=== PATIENT | male | born 1960 | race Caucasian/White ===

== ENCOUNTER 2016-03-18 18:02 | Outpatient (CLI) | payer OTHER ==
[~2016-03-18 18:02] MED LIST: ACETAMINOPHEN500 MG PO; FLUZONE IM; GABAPENTIN600 MG PO; HUMALOG100 MG/ML SC; INVANZ1 GM IV; LANTUS SOL100 UNITS/ SC; METFORMIN HCL500 MG PO; METRONIDAZOLE500 MG PO; NEURONTIN100 MG PO; OXYCONTIN CR10 MG PO; PERCOCET1 TA1 PO; SMZ-TMP DS1 TAB PO; VANCOMYCIN HCL750 MG IV
--- NOTE | 2016-03-18 19:10 | DIAGNOSTIC IMAGING REPORT ---
PROCEDURE: XR FOOT 3 VIEWS - LEFT INDICATION: THREE WOUNDS OF THE LEFT FOOT TECHNIQUE: Three views. COMPARISON: Comparison made radiographs of the left foot on 10/01/2015. 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 There is no evidence of osteomyelitis. Findings suggest probable soft tissue wound. Arterial vascular calcifications consistent with diabetes. IMPRESSION: 1. Status post amputation of the left midfoot (no change). 2. No evidence of osteomyelitis.
== END 2016-03-18 23:00 ==
LOC: XR SRH 18:02
DX: L97.429 Non-pressure chronic ulcer of left heel and midfoot with unspecified severity (principal); Z89.432 Acquired absence of left foot

== ENCOUNTER 2016-05-18 11:06 | Emergency (ER) | payer OTHER ==
--- NOTE | 2016-05-18 11:31 | ED NURSING NOTES ---
Clinical Report - Nurses [facility] [address] [place] [address] 05/18/2016 11:08 Patient: JOSLYN MARIE TRIAGE Acuity: LEVEL 4. Chief Complaint: DOG BITE. Alert. No acute distress. SEPSIS SCREEN: Sepsis Screen. Negative (no infection suspected/documented). --11:18 Alexandra Dorantes R.N. 11:13 05/18/16. BP: 154/74. HR: 80. RR: 18. O2 saturation: 96%. Temp: 98.2 F (oral). Pain level now: 04/16. --11:18 Alexandra Dorantes R.N. Weight: 88.4 kg stated. Height/Length: 67 inches Per Patient. BMI: 30.6. --11:17 Alexandra Dorantes R.N. Medications Gabapentin Oral 600 mg TID. Lantus Subcutaneous. MetFORMIN HCl Oral 1000 mg TID. Percocet Oral 5/325 mg, as needed. --11:16 Alexandra Dorantes R.N. HumaLOG Subcutaneous. --11:16 Alexandra Dorantes R.N. Tylenol Oral. --11:17 Alexandra Dorantes R.N. Allergies No Known Drug Allergy. --11:16 lAexandra Dorantes R.N. History Arrived by private vehicle. Historian: patient. Unaccompanied. Primary physician (mandi). Location of injuries: right thumb and left wrist. This occurred just prior to arrival. Circumstances: This was an "unprovoked" attack. The animal reportedly appeared well and the immunization status of the animal is unknown. PAST MEDICAL HX: Immunizations: up-to-date. SOCIAL HX: Never smoker. Regular alcohol use. No drug use. FALL RISK ASSESSMENT: Fall risk assessment completed. No fall risk identified. NUTRITIONAL RISK ASSESSMENT: The nutritional risk assessment revealed no deficiencies. FUNCTIONAL ASSESSMENT: Functional assessment: no impairments noted. LEARNING NEEDS ASSESSMENT: The learning needs assessment revealed no barriers. SKIN INTEGRITY ASSESSMENT: Skin integrity risk assessment completed. No skin integrity risk identified. --11:18 Alexandra Dorantes R.N. PROBLEMS: Hyperglycemia. Insomnia. Ulcer L foot. Fever. Anemia. Wound debridement right foot 07/02/15. Animal Bite. Hypotension. Cellulitis. Leukocytosis. Immunizations. Diabetes Mellitus. --11:17 Alexandra Dorantes R.N. ADDITIONAL SURGERIES: Right foot surgery. Toe amputation. --11:17 Alexandra Dorantes R.N. Assessment GENERAL / NEURO / PSYCH: Alert. Oriented X 4. Appears in no acute distress. Patient appears calm and cooperative. RESPIRATORY: Respirations not labored. CVS: Capillary refill less than 2 seconds. GI / : Abdomen soft and nontender. SKIN: Mucous membranes are pink. Skin is warm and dry. --11:18 Alexandra Dorantes R.N. Interventions ID band on patient. To treatment room. --11:18 Alexandra Dorantes R.N. PHYSICAL ASSESSMENT 11:19 05/18/16. Ambulatory to room. GENERAL / NEURO / PSYCH: Alert. Oriented X 4. Appears in no acute distress. HEENT: Pupils equal, round and reactive to light. RESPIRATORY: Respirations not labored. CVS: Pulses within normal limits. Capillary refill less than 2 seconds. GI / : Abdomen soft and nontender. EXTREMITIES: Extremities exhibit normal ROM. Neuro-vascular status intact to the extremity. Right thumb: tenderness and small abrasion. Left wrist: tenderness, swelling, small abrasion and single puncture wound. SKIN: Skin is warm and dry. --11:19 Alexandra Dorantes R.N. NURSING PROGRESS NOTES 11:05/18/16. Two patient identifiers checked. Call light placed in reach. Side rails up x 1. Bed placed in lowest position. Brakes of bed on. Patient ready for evaluation- chart flagged and ED physician notified. --11:19 Alexandra Dorantes R.N. 11:30 05/18/2016 Augmentin (Amoxicillin-Pot Clavulanate) PO 875 mg given. Allergies verified and confirmed 5 rights. --11:35 Ralph Gao R.N. ( cleaned wound , ointment applied, covered with 2 x 2 and wrapped with conform.). --11:44 Nations, Rashmi, ER Tech1. DISPOSITION / DISCHARGE 11:48 05/18/16. Condition at departure: improved. The goals identified in the patient's plan of care were met. No learning barriers present. Discharge instructions provided and reviewed with the patient. Reviewed warnings. Reviewed medication(s). Treatments reviewed. Patient verbalized understanding. Written instructions provided in [place]ian. The patient was discharged by the physician. He was discharged home and unaccompanied at time of discharge. He left the Emergency Department ambulatory and via private vehicle. Patient driving. FALL RISK ASSESSMENT: Fall risk assessment completed. No fall risk identified. --11:49 Ralph Gao R.N. 11:48 05/18/16. BP: 135/82. HR: 78. RR: 18. O2 saturation: 99% on room air. Temp: 98.2 F (oral). Pain level now: 03/16. --11:49 Ralph Gao R.N. 11:49 05/18/16. Departure time: 11:49. --11:49 Ralph Gao R.N. Locked/Released at 05/18/2016 11:54 by Ralph Gao R.N.
--- NOTE | 2016-05-18 11:31 | ED ORDER SUMMARY ---
..... Patient: JOSLYN MARIE OrderSheet [facility] VisitID: [id number] [place] [address] 56y, M Registration Date/Time: 05/18/2016 ORDER SHEET Weight: 88.4 kg (stated) Allergies: No Known Drug Allergy GENERAL ORDERS: Dress Wounds (baci) (11:05/18/2016 Eliazar Mayo) (Ack 11:36 MWinterer R.N.) (11:47 JBoardley R.N.) Irrigate Wounds (11:05/18/2016 Eliazar Mayo) (Ack 11:36 MWinterer R.N.) (11:47 JBoardley R.N.) MEDICATION ORDERS: Augmentin PO 875 mg (NOW) (11:05/18/2016 Eliazar Mayo) (Ack 11:32 JBoardley R.N.) (11:35 JBoardley R.N.) IV FLUIDS: ORDER SHEET NOTES: [Electronically signed by Ralph Gao R.N. (11:54 05/18/2016)] [Electronically signed by Joseph Garza Dr. (14:12 05/23/2016)] [Electronically locked/signed by Ralph Gao R.N. (11:54 05/18/2016)]
--- NOTE | 2016-05-18 11:31 | ED CLINICAL REPORT ---
Clinical Report - Physicians/Mid Levels [facility] [address] [place] [address] 05/18/2016 11:08 Patient: JOSLYN MARIE Arrived- By private vehicle. Historian- patient. HISTORY OF PRESENT ILLNESS Location of injuries- (left wrist and right hand). Chief Complaint: DOG BITE. The injury occurred just prior to arrival. The animal reportedly appeared well, is up to date on immunizations and can be observed for ten days. Occurred at home. This was an "unprovoked" attack. (dog digging in trash and attempted to get dog out of trash). No dizziness or difficulty breathing. Treatment MEDICAL MANAGEMENT SPECIALIST- none. REVIEW OF SYSTEMS The patient has had swelling. No numbness or tingling. All systems otherwise negative, except as recorded above. PAST HISTORY See nurses notes. Tetanus immunization status is up-to-date. Medications: Tylenol Oral. HumaLOG Subcutaneous. Gabapentin Oral 600 mg TID. Lantus Subcutaneous. MetFORMIN HCl Oral 1000 mg TID. Percocet Oral 5/325 mg, as needed. Allergies: No Known Drug Allergy. SOCIAL HISTORY Never smoker. No alcohol use or drug use. No recent travel. Is a local resident. ADDITIONAL NOTES The nursing notes have been reviewed. PHYSICAL EXAM Vital Signs: 05/18/2016 11:13 BP: 154/74. HR: 80. RR: 18. O2 saturation: 96%. Temp: 98.2 F. Pain level now: 2/10. Blood pressure normal. Oxygen saturation normal. Appearance: Alert. Oriented X3. No acute distress. Head: No Perez's sign or raccoon eyes. ENT: No hemotympanum. Neck: Normal inspection. No decreased ROM or muscle spasm in the neck. No pain with movement of head/neck. Neck non-tender. Painless ROM. No vertebral tenderness. CVS: Heart sounds normal. Pulses normal. Respiratory: Chest normal on inspection. Breath sounds normal. Chest nontender. Abdomen: Normal inspection. Soft and nontender. Bowel sounds normal. Back: Normal inspection. No tenderness. ROM normal. Skin: Skin intact. Skin warm and dry. Normal skin color. Normal skin turgor. Extremities: (cattered superficial abrasions to the left wrist as well as the right dorsal hand. There is a small puncture wound noted on the left wrist which is several millimeters deep. No subcutaneous tissue notedto be visualized on examination. Compartments are soft. No overlying skin changes other than the abrasions and the small puncture wound. Patient has full range of motion of the hand in all major joints Sensation grossly intact in all digits.). Neuro: Hastings Coma Scale: 15- eyes open spontaneously (4); best verbal response- oriented x 3 (5); best motor response- obeys commands (6). PROGRESS AND PROCEDURES Course of Care: The patient is a pleasant 56-year-old male presenting for a vaginal dogbite. On examination, patient does not have any signs of foreign body or significant injury noted from the dog bite. Patient declines offers of x-rays of the left wrist in particular given the small puncture wound. Patient reports that he feels it is not very deep. Had discussion with patient in regards to management of dog bites. Patient is currently agreeable to antibiotic therapy. No otherinjuries noted on examination. No concern for rabies at this time. Wound is then irrigated via nursing staffhere in the emergency department. barrier antibiotic ointment as well as bandages have been applied here as well. Patient was reevaluated after these interventions have beenperformed. Patient continues to be neurovascularly intact. Discussed with patient workup, diagnosis, home care, follow-up, and return precautions. All questions have been answered. The patient expressed understanding of these instructions and was agreeable to them. Patient is a good outpatient candidate. Do not feel patient needs to be admitted to hospital or require further emergency departmentworkup/evaluation. Disposition: Discharged. Condition: good. CLINICAL IMPRESSION 05/18/2016 11:13 BP: 154/74. HR: 80. RR: 18. O2 saturation: 96%. Temp: 98.2 F. Pain level now: 04/16. Hypertensive. Oxygen saturation normal. Multiple superficial dog bites to the right hand and left wrist. No bite with injury to the right fingernails. Essential hypertension. INSTRUCTIONS Warnings: GENERAL WARNINGS: Return or contact your physician immediately if your condition worsens or changes unexpectedly, if not improving as expected, or if other problems arise. Specifically return if pain, vomiting, bleeding, breathing difficulty or fever. Your Current Medications: CONTINUE TAKING THE FOLLOWING MEDICATIONS: Gabapentin Oral : 600 mg TID. HumaLOG Subcutaneous. Lantus Subcutaneous. MetFORMIN HCl Oral : 1000 mg TID. Percocet Oral : 5/325 mg, prn. Tylenol Oral. Prescription Medications: Augmentin 875 mg: take 1 tablet orally every 12 hours for 10 days. No refill. Substitution is permissible. (disp 20 tabs) Follow-up: Return to the emergency department as needed. Follow up with your doctor in three days. Reason for referral: recheck today's concerns. Summary of care provided to patient via paper. Screening today revealed the patient's blood pressure to be in the hypertensive range. Blood pressure screening was not performed during this visit because the patient has an active diagnosis of hypertension. The patient should follow up with a primary care provider for blood pressure management. Understanding of the discharge instructions verbalized by patient. (Electronically signed by Joseph Garza Dr. 05/23/2016 14:12)
--- NOTE | 2016-05-18 11:31 | ED ORDER SUMMARY ---
..... Patient: JOSLYN MARIE OrderSheet [facility] VisitID: [id number] [place] [address] 56y, M Registration Date/Time: 05/18/2016 ORDER SHEET Weight: 88.4 kg (stated) Allergies: No Known Drug Allergy GENERAL ORDERS: Dress Wounds (baci) (11:05/18/2016 Eliazar Mayo) (Ack 11:36 MWinterer R.N.) (11:47 JBoardley R.N.) Irrigate Wounds (11:05/18/2016 Eliazar Mayo) (Ack 11:36 MWinterer R.N.) (11:47 JBoardley R.N.) MEDICATION ORDERS: Augmentin PO 875 mg (NOW) (11:05/18/2016 Eliazar Mayo) (Ack 11:32 JBoardley R.N.) (11:35 JBoardley R.N.) IV FLUIDS: ORDER SHEET NOTES: [Electronically signed by Ralph Gao R.N. (11:54 05/18/2016)] [Electronically signed by Joseph Garza Dr. (14:12 05/23/2016)] [Electronically locked/signed by Ralph Gao R.N. (11:54 05/18/2016)]
--- NOTE | 2016-05-23 14:12 | ED MED RECONCILIATION SUMMARY ---
Patient: JOSLYN MARIE Medication Reconciliation Report [facility] VisitID: [id number] [place] [address] 56y, M Registration Date/Time: 05/18/2016 Weight: 88.4 kg Height/Length: 67 in. BMI: 30.6 ALLERGIES: No Known Drug Allergy The patient's Home Medications are listed below: CONTINUE TAKING THE FOLLOWING MEDICATIONS: Gabapentin Oral 600 mg TID HumaLOG Subcutaneous Lantus Subcutaneous MetFORMIN HCl Oral 1000 mg TID Percocet Oral 5/325 mg Tylenol Oral The source(s) of the original Home Medication information: Not obtained. The following Medications were given to the patient in the Emergency Department: Augmentin [PO] PO 875 mg, administered: 05/18/2016 11:30:00 AM The following Medications were prescribed to the patient: Augmentin 875 mg: take 1 tablet orally every 12 hours for 10 days. No refill. Substitution is permissible.(disp 20 tabs) -- Joseph Garza Dr.
--- NOTE | 2016-05-23 14:12 | ED MAR SUMMARY ---
..... Medication Administration Record [facility] [address] [place] [address] Patient: JOSLYN MARIE Visit ID: [id number] 56y, M Weight: 88.4 kg Height/Length: 67 in BMI: 30.6 ALLERGIES: No Known Drug Allergy Given 11:30 05/18/2016 Ralph Gao R.N. Medication Administered: AUGMENTIN [PO] (AMOXICILLIN-POT CLAVULANATE), Dose: 875 mg PO. Medication Ordered: Augmentin PO 875 mg (NOW).
--- NOTE | 2016-05-23 14:12 | ED MAR SUMMARY ---
..... Medication Administration Record [facility] [address] [place] [address] Patient: JOSLYN MARIE Visit ID: [id number] 56y, M Weight: 88.4 kg Height/Length: 67 in BMI: 30.6 ALLERGIES: No Known Drug Allergy Given 11:30 05/18/2016 Ralph Gao R.N. Medication Administered: AUGMENTIN [PO] (AMOXICILLIN-POT CLAVULANATE), Dose: 875 mg PO. Medication Ordered: Augmentin PO 875 mg (NOW).
--- NOTE | 2016-05-23 14:12 | ED DISCHARGE INSTRUCTIONS ---
Patient: JOSLYN MARIE General Instructions [facility] VisitID: [id number] [place] [address] 56y, M Registration Date/Time: 05/18/2016 05/18/2016 11:13 BP: 154/74. HR: 80. RR: 18. O2 saturation: 96%. Temp: 98.2 F. Pain level now: 04/16. Hypertensive. Oxygen saturation normal. Multiple superficial dog bites to the right hand and left wrist. No bite with injury to the right fingernails. Essential hypertension. INSTRUCTIONS Warnings: GENERAL WARNINGS: Return or contact your physician immediately if your condition worsens or changes unexpectedly, if not improving as expected, or if other problems arise. Specifically return if pain, vomiting, bleeding, breathing difficulty or fever. Your Current Medications: CONTINUE TAKING THE FOLLOWING MEDICATIONS: Gabapentin Oral : 600 mg TID. HumaLOG Subcutaneous. Lantus Subcutaneous. MetFORMIN HCl Oral : 1000 mg TID. Percocet Oral : 5/325 mg, prn. Tylenol Oral. Prescription Medications: Augmentin 875 mg: take 1 tablet orally every 12 hours for 10 days. No refill. Substitution is permissible. (disp 20 tabs) Follow-up: Return to the emergency department as needed. Follow up with your doctor in three days. Reason for referral: recheck today's concerns. Summary of care provided to patient via paper. Screening today revealed the patient's blood pressure to be in the hypertensive range. Blood pressure screening was not performed during this visit because the patient has an active diagnosis of hypertension. The patient should follow up with a primary care provider for blood pressure management. Understanding of the discharge instructions verbalized by patient. ADDITIONAL INFORMATION Dog Bite If a dog has bitten you and the wound is deep enough to break the skin, an infection may occur. Therefore, you should watch for the warning signs listed below. The doctor may not close the wound completely. This is to allow fluid to drain in the event of an infection. Home Care Watch the wound for signs of infection listed below. In certain types of bites, antibiotics may be prescribed. Begin taking these as soon as possible, as directed until they are all gone. Rabies Prevention If you live in an area where rabies occurs in wild animals, the rabies virus can be passed to cats and dogs. An infected animal can pass the rabies virus to you during a bite. If ahealthy-looking pet dog has bitten you, it should be kept in a secure area for the next 10 days to watch for signs of illness. If the pet filler mixer wont cooperate with you, contact the [facility] animal control department (or local law enforcement). If the animal becomes ill or dies [id number] days, contact your animal control department at once. The animal must be tested for rabies. If the animal stays healthy for the next 10 days, then there is no danger of rabies in the dog or you. Pets fully vaccinated against rabies (2 shots) are at very low risk for the infection. However, because human rabies is almost always fatal, any biting dog should be kept in confinement for 10 days as an extra precaution. If a stray dog bit you, contact the animal control department. They can provide information on capture, quarantine, and animal rabies testing. If you are unable to locate the animal that bit you in the next 2days, and if rabies exists in your region, you must be evaluated for the rabies vaccine series. Contact your doctor or return here promptly. All animal bites should be reported to the [facility] animal control department. If you were not given a form to fill out, you can report it yourself by calling. Follow Up with your doctor as advised. Most skin wounds heal within 10 days. However, an infection may occur even with proper treatment. Check your woundevery 6 hoursfor 2 days, then at least once a day for the next two days for the signs of infection listed below. Get Prompt Medical Attention if any of the following occur: Signs of infection: Spreading redness Increased pain or swelling Fever of 100.4F (38C) or higher, or as directed by your healthcare provider Colored fluid or pus draining from the wound Headache, confusion, strange behavior, or a seizure (signs of a rabies infection) Rabies Virus Strain PM-1503-3M antigen (Propiolactone Inactivated) Suspension for injection What is this medicine? RABIES VACCINE (ray BEES vax EEN) is used to prevent rabies infection. Rabies is mostly a disease of animals. Humans may get rabies if they are bitten by animals that have rabies. The vaccine may be given to protect someone with a high risk of rabies or it may be given to someone after they have been exposed. How should I use this medicine? This vaccine is for injection into a muscle. It is given by a health day care worker. A copy of Vaccine Information Statements will be given before each vaccination. Read this sheet carefully each time. The sheet may change frequently. Talk to your library paraprofessional regarding the use of this medicine in children. While this drug may be prescribed for children and infants, precautions do apply. Overdosage: If you think you've taken too much of this medicine contact a poison control center or emergency room at once. What side effects may I notice from receiving this medicine? Side effects that you should report to your doctor or health day care worker as soon as possible: allergic reactions like skin rash, itching or hives, swelling of the face, lips, or tongue changes in vision joint pain with fever pain, tingling, numbness in the hands or feet stiff neck and sensitivity to light unusually weak or tired Side effects that usually do not require medical attention (Report these to your doctor or health day care worker if they continue or are bothersome.): dizziness headache muscle aches and pains pain, redness, itching or swelling at site where injected stomach pain tiredness What may interact with this medicine? antimalarial drugs etanercept immune globulins infliximab medicines for organ transplant medicines to treat cancer other vaccines some medicines for arthritis steroid medicines like prednisone or cortisone What if I miss a dose? Keep appointments for follow-up doses as directed. It is important not to miss your dose. Call your doctor or health day care worker if you are unable to keep an appointment. All of the vaccine doses must be given in order to provide proper protection. Where should I keep my medicine? This drug is given in a hospital or clinic and will not be stored at home. What should I tell my health care provider before I take this medicine? They need to know if you have any of these conditions: bleeding disorder cancer HIV or AIDS immune system problems low blood counts, like low white cell, platelet, or red cell counts recent or ongoing radiation therapy take medicines that treat or prevent blood clots an unusual or allergic reaction to vaccines, albumin, eggs, neomycin, other medicines, foods, dyes, or preservatives or trying to get breast-feeding What should I watch for while using this medicine? This vaccine, like all vaccines, may not fully protect everyone. High Blood Pressure --Established High Blood Pressure (Hypertension) is a chronic disease. The cause is unknown in most cases. It can usually be controlled with lifestyle changes and/or medicines. Symptoms of high blood pressure may include headache, dizziness, visual changes, chest pain and shortness of breath. Sometimes it causes no symptoms at all. However, even if there are no symptoms, untreated high blood pressure increases the risk of heart attack, also known as acute myocardial infarction, or AMI, and stroke. It is a serious health risk and should not be ignored. A normal blood pressure is 120/80 or less. The first (top) number is the "systolic" pressure. The second (bottom) number is the "diastolic" pressure. Hypertension exists when either the top number is 140 or higher, OR the bottom number is 90 or higher on repeated measurements. Home Care: All patients with high blood pressure should do the following to lower their pressure. If you are on medicines, then these methods may reduce or eliminate your need for medicines in the future. Begin a weight loss program if you are overweight. Reduce your salt intake. Avoid high salt foods (olives, pickles, smoked meats, salted potato chips, etc.). Do not add salt to your food at the table. Use only small amounts of salt when cooking. Begin an exercise program. Discuss with your doctor what type of exercise program would be best for you. It doesn't have to be difficult. Even brisk walking for 20 minutes three times a week is a good form of exercise. Avoid medicines which contain heart stimulants. This includes many cold and sinus decongestant pills and sprays as well as diet pills. Check the warnings about hypertension on the label. Stimulants such as amphetamine or cocaine could be lethal for someone with hypertension. Never take these. Limit your caffeine intake or switch to caffeine-free products. Stop smoking. If you are a long-time smoker, this can be hard. Enroll in a stop-smoking program to improve your chance of success. Learning how to handle stress better is an important part of any program to lower blood pressure. Learn about relaxation methods such as meditation, yoga or biofeedback. If medicines were prescribed, take them exactly as directed. Missing doses may cause your blood pressure get out of control. Consider buying an automatic blood pressure machine (available at most pharmacies). Use this to monitor your blood pressure at home and report the results to your doctor. Follow Up: Regular visits to your own physician for blood pressure checks and medicine adjustment is an important part of your care. Make a follow-up appointment as directed by our staff. Get Prompt Medical Attention if any of the following occur: Chest pain or shortness of breath Severe headache Throbbing or rushing sound in the ears Nosebleed Sudden severe abdominal pain Extreme drowsiness, confusion or fainting Dizziness or vertigo (dizziness with spinning sensation) Weakness of an arm or leg or one side of the face Difficulty with speech or vision Amoxicillin Trihydrate, Clavulanate Potassium Oral tablet What is this medicine? AMOXICILLIN; CLAVULANIC ACID (a mox i MAITE in; JESU kwok aram ic id) is a penicillin antibiotic. It is used to treat certain kinds of bacterial infections. It will not work for colds, flu, or other viral infections. How should I use this medicine? Take this medicine by mouth with a full glass of water. Follow the directions on the prescription label. Take at the start of a meal. Do not crush or chew. If the tablet has a score line, you may cut it in half at the score line for easier swallowing. Take your medicine at regular intervals. Do not take your medicine more often than directed. Take all of your medicine as directed even if you think you are better. Do not skip doses or stop your medicine early. Talk to your library paraprofessional regarding the use of this medicine in children. Special care may be needed. What side effects may I notice from receiving this medicine? Side effects that you should report to your doctor or health day care worker as soon as possible: allergic reactions like skin rash, itching or hives, swelling of the face, lips, or tongue breathing problems dark urine fever or chills, sore throat redness, blistering, peeling or loosening of the skin, including inside the mouth seizures trouble passing urine or change in the amount of urine unusual bleeding, bruising unusually weak or tired white patches or sores in the mouth or throat Side effects that usually do not require medical attention (report to your doctor or health day care worker if they continue or are bothersome): diarrhea dizziness headache nausea, vomiting stomach upset vaginal or anal irritation What may interact with this medicine? allopurinol anticoagulants control pills methotrexate probenecid What if I miss a dose? If you miss a dose, take it as soon as you can. If it is almost time for your next dose, take only that dose. Do not take double or extra doses. Where should I keep my medicine? Keep out of the reach of children. Store at room temperature below 25 degrees C (77 degrees F). Keep container tightly closed. Throw away any unused medicine after the expiration date. What should I tell my health care provider before I take this medicine? They need to know if you have any of these conditions: bowel disease, like colitis kidney disease liver disease mononucleosis an unusual or allergic reaction to amoxicillin, penicillin, cephalosporin, other antibiotics, clavulanic acid, other medicines, foods, dyes, or preservatives or trying to get breast-feeding What should I watch for while using this medicine? Tell your doctor or health day care worker if your symptoms do not improve. Do not treat diarrhea with over the counter products. Contact your doctor if you have diarrhea that lasts more than 2 days or if it is severe and watery. If you have diabetes, you may get a false-positive result for sugar in your urine. Check with your doctor or health day care worker. control pills may not work properly while you are taking this medicine. Talk to your doctor about using an extra method of control. You have been given the following additional information: Dog Bite Rabies Virus Strain PM-1503-3M antigen (Propiolactone Inactivated) Suspension for injection Hypertension, Established Amoxicillin Trihydrate, Clavulanate Potassium Oral tablet (Electronically signed by Joseph Garza Dr. 05/23/2016 14:12)
--- NOTE | 2016-05-23 14:12 | ED DISCHARGE INSTRUCTIONS ---
Patient: JOSLYN MARIE General Instructions [facility] VisitID: [id number] [place] [address] 56y, M Registration Date/Time: 05/18/2016 05/18/2016 11:13 BP: 154/74. HR: 80. RR: 18. O2 saturation: 96%. Temp: 98.2 F. Pain level now: 04/16. Hypertensive. Oxygen saturation normal. Multiple superficial dog bites to the right hand and left wrist. No bite with injury to the right fingernails. Essential hypertension. INSTRUCTIONS Warnings: GENERAL WARNINGS: Return or contact your physician immediately if your condition worsens or changes unexpectedly, if not improving as expected, or if other problems arise. Specifically return if pain, vomiting, bleeding, breathing difficulty or fever. Your Current Medications: CONTINUE TAKING THE FOLLOWING MEDICATIONS: Gabapentin Oral : 600 mg TID. HumaLOG Subcutaneous. Lantus Subcutaneous. MetFORMIN HCl Oral : 1000 mg TID. Percocet Oral : 5/325 mg, prn. Tylenol Oral. Prescription Medications: Augmentin 875 mg: take 1 tablet orally every 12 hours for 10 days. No refill. Substitution is permissible. (disp 20 tabs) Follow-up: Return to the emergency department as needed. Follow up with your doctor in three days. Reason for referral: recheck today's concerns. Summary of care provided to patient via paper. Screening today revealed the patient's blood pressure to be in the hypertensive range. Blood pressure screening was not performed during this visit because the patient has an active diagnosis of hypertension. The patient should follow up with a primary care provider for blood pressure management. Understanding of the discharge instructions verbalized by patient. ADDITIONAL INFORMATION Dog Bite If a dog has bitten you and the wound is deep enough to break the skin, an infection may occur. Therefore, you should watch for the warning signs listed below. The doctor may not close the wound completely. This is to allow fluid to drain in the event of an infection. Home Care Watch the wound for signs of infection listed below. In certain types of bites, antibiotics may be prescribed. Begin taking these as soon as possible, as directed until they are all gone. Rabies Prevention If you live in an area where rabies occurs in wild animals, the rabies virus can be passed to cats and dogs. An infected animal can pass the rabies virus to you during a bite. If ahealthy-looking pet dog has bitten you, it should be kept in a secure area for the next 10 days to watch for signs of illness. If the pet cable armorer operator wont cooperate with you, contact the [facility] hospital animal control department (or local law enforcement). If the animal becomes ill or dies [id number] days, contact your animal control department at once. The animal must be tested for rabies. If the animal stays healthy for the next 10 days, then there is no danger of rabies in the dog or you. Pets fully vaccinated against rabies (2 shots) are at very low risk for the infection. However, because human rabies is almost always fatal, any biting dog should be kept in confinement for 10 days as an extra precaution. If a stray dog bit you, contact the animal control department. They can provide information on capture, quarantine, and animal rabies testing. If you are unable to locate the animal that bit you in the next 2days, and if rabies exists in your region, you must be evaluated for the rabies vaccine series. Contact your doctor or return here promptly. All animal bites should be reported to the [facility] hospital animal control department. If you were not given a form to fill out, you can report it yourself by calling. Follow Up with your doctor as advised. Most skin wounds heal within 10 days. However, an infection may occur even with proper treatment. Check your woundevery 6 hoursfor 2 days, then at least once a day for the next two days for the signs of infection listed below. Get Prompt Medical Attention if any of the following occur: Signs of infection: Spreading redness Increased pain or swelling Fever of 100.4F (38C) or higher, or as directed by your healthcare provider Colored fluid or pus draining from the wound Headache, confusion, strange behavior, or a seizure (signs of a rabies infection) Rabies Virus Strain PM-1503-3M antigen (Propiolactone Inactivated) Suspension for injection What is this medicine? RABIES VACCINE (ray BEES vax EEN) is used to prevent rabies infection. Rabies is mostly a disease of animals. Humans may get rabies if they are bitten by animals that have rabies. The vaccine may be given to protect someone with a high risk of rabies or it may be given to someone after they have been exposed. How should I use this medicine? This vaccine is for injection into a muscle. It is given by a health weekend caregiver. A copy of Vaccine Information Statements will be given before each vaccination. Read this sheet carefully each time. The sheet may change frequently. Talk to your family caseworker regarding the use of this medicine in children. While this drug may be prescribed for children and infants, precautions do apply. Overdosage: If you think you've taken too much of this medicine contact a poison control center or emergency room at once. What side effects may I notice from receiving this medicine? Side effects that you should report to your doctor or health weekend caregiver as soon as possible: allergic reactions like skin rash, itching or hives, swelling of the face, lips, or tongue changes in vision joint pain with fever pain, tingling, numbness in the hands or feet stiff neck and sensitivity to light unusually weak or tired Side effects that usually do not require medical attention (Report these to your doctor or health weekend caregiver if they continue or are bothersome.): dizziness headache muscle aches and pains pain, redness, itching or swelling at site where injected stomach pain tiredness What may interact with this medicine? antimalarial drugs etanercept immune globulins infliximab medicines for organ transplant medicines to treat cancer other vaccines some medicines for arthritis steroid medicines like prednisone or cortisone What if I miss a dose? Keep appointments for follow-up doses as directed. It is important not to miss your dose. Call your doctor or health weekend caregiver if you are unable to keep an appointment. All of the vaccine doses must be given in order to provide proper protection. Where should I keep my medicine? This drug is given in a hospital or clinic and will not be stored at home. What should I tell my health care provider before I take this medicine? They need to know if you have any of these conditions: bleeding disorder cancer HIV or AIDS immune system problems low blood counts, like low white cell, platelet, or red cell counts recent or ongoing radiation therapy take medicines that treat or prevent blood clots an unusual or allergic reaction to vaccines, albumin, eggs, neomycin, other medicines, foods, dyes, or preservatives or trying to get breast-feeding What should I watch for while using this medicine? This vaccine, like all vaccines, may not fully protect everyone. High Blood Pressure --Established High Blood Pressure (Hypertension) is a chronic disease. The cause is unknown in most cases. It can usually be controlled with lifestyle changes and/or medicines. Symptoms of high blood pressure may include headache, dizziness, visual changes, chest pain and shortness of breath. Sometimes it causes no symptoms at all. However, even if there are no symptoms, untreated high blood pressure increases the risk of heart attack, also known as acute myocardial infarction, or AMI, and stroke. It is a serious health risk and should not be ignored. A normal blood pressure is 120/80 or less. The first (top) number is the "systolic" pressure. The second (bottom) number is the "diastolic" pressure. Hypertension exists when either the top number is 140 or higher, OR the bottom number is 90 or higher on repeated measurements. Home Care: All patients with high blood pressure should do the following to lower their pressure. If you are on medicines, then these methods may reduce or eliminate your need for medicines in the future. Begin a weight loss program if you are overweight. Reduce your salt intake. Avoid high salt foods (olives, pickles, smoked meats, salted potato chips, etc.). Do not add salt to your food at the table. Use only small amounts of salt when cooking. Begin an exercise program. Discuss with your doctor what type of exercise program would be best for you. It doesn't have to be difficult. Even brisk walking for 20 minutes three times a week is a good form of exercise. Avoid medicines which contain heart stimulants. This includes many cold and sinus decongestant pills and sprays as well as diet pills. Check the warnings about hypertension on the label. Stimulants such as amphetamine or cocaine could be lethal for someone with hypertension. Never take these. Limit your caffeine intake or switch to caffeine-free products. Stop smoking. If you are a long-time smoker, this can be hard. Enroll in a stop-smoking program to improve your chance of success. Learning how to handle stress better is an important part of any program to lower blood pressure. Learn about relaxation methods such as meditation, yoga or biofeedback. If medicines were prescribed, take them exactly as directed. Missing doses may cause your blood pressure get out of control. Consider buying an automatic blood pressure machine (available at most pharmacies). Use this to monitor your blood pressure at home and report the results to your doctor. Follow Up: Regular visits to your own physician for blood pressure checks and medicine adjustment is an important part of your care. Make a follow-up appointment as directed by our staff. Get Prompt Medical Attention if any of the following occur: Chest pain or shortness of breath Severe headache Throbbing or rushing sound in the ears Nosebleed Sudden severe abdominal pain Extreme drowsiness, confusion or fainting Dizziness or vertigo (dizziness with spinning sensation) Weakness of an arm or leg or one side of the face Difficulty with speech or vision Amoxicillin Trihydrate, Clavulanate Potassium Oral tablet What is this medicine? AMOXICILLIN; CLAVULANIC ACID (a mox i MAITE in; JESU kwok aram ic id) is a penicillin antibiotic. It is used to treat certain kinds of bacterial infections. It will not work for colds, flu, or other viral infections. How should I use this medicine? Take this medicine by mouth with a full glass of water. Follow the directions on the prescription label. Take at the start of a meal. Do not crush or chew. If the tablet has a score line, you may cut it in half at the score line for easier swallowing. Take your medicine at regular intervals. Do not take your medicine more often than directed. Take all of your medicine as directed even if you think you are better. Do not skip doses or stop your medicine early. Talk to your family caseworker regarding the use of this medicine in children. Special care may be needed. What side effects may I notice from receiving this medicine? Side effects that you should report to your doctor or health weekend caregiver as soon as possible: allergic reactions like skin rash, itching or hives, swelling of the face, lips, or tongue breathing problems dark urine fever or chills, sore throat redness, blistering, peeling or loosening of the skin, including inside the mouth seizures trouble passing urine or change in the amount of urine unusual bleeding, bruising unusually weak or tired white patches or sores in the mouth or throat Side effects that usually do not require medical attention (report to your doctor or health weekend caregiver if they continue or are bothersome): diarrhea dizziness headache nausea, vomiting stomach upset vaginal or anal irritation What may interact with this medicine? allopurinol anticoagulants control pills methotrexate probenecid What if I miss a dose? If you miss a dose, take it as soon as you can. If it is almost time for your next dose, take only that dose. Do not take double or extra doses. Where should I keep my medicine? Keep out of the reach of children. Store at room temperature below 25 degrees C (77 degrees F). Keep container tightly closed. Throw away any unused medicine after the expiration date. What should I tell my health care provider before I take this medicine? They need to know if you have any of these conditions: bowel disease, like colitis kidney disease liver disease mononucleosis an unusual or allergic reaction to amoxicillin, penicillin, cephalosporin, other antibiotics, clavulanic acid, other medicines, foods, dyes, or preservatives or trying to get breast-feeding What should I watch for while using this medicine? Tell your doctor or health weekend caregiver if your symptoms do not improve. Do not treat diarrhea with over the counter products. Contact your doctor if you have diarrhea that lasts more than 2 days or if it is severe and watery. If you have diabetes, you may get a false-positive result for sugar in your urine. Check with your doctor or health weekend caregiver. control pills may not work properly while you are taking this medicine. Talk to your doctor about using an extra method of control. You have been given the following additional information: Dog Bite Rabies Virus Strain PM-1503-3M antigen (Propiolactone Inactivated) Suspension for injection Hypertension, Established Amoxicillin Trihydrate, Clavulanate Potassium Oral tablet (Electronically signed by Joseph Garza Dr. 05/23/2016 14:12)
--- NOTE | 2016-05-23 14:12 | ED MED RECONCILIATION SUMMARY ---
Patient: JOSLYN MARIE Medication Reconciliation Report [facility] VisitID: [id number] [place] [address] 56y, M Registration Date/Time: 05/18/2016 Weight: 88.4 kg Height/Length: 67 in. BMI: 30.6 ALLERGIES: No Known Drug Allergy The patient's Home Medications are listed below: CONTINUE TAKING THE FOLLOWING MEDICATIONS: Gabapentin Oral 600 mg TID HumaLOG Subcutaneous Lantus Subcutaneous MetFORMIN HCl Oral 1000 mg TID Percocet Oral 5/325 mg Tylenol Oral The source(s) of the original Home Medication information: Not obtained. The following Medications were given to the patient in the Emergency Department: Augmentin [PO] PO 875 mg, administered: 05/18/2016 11:30:00 AM The following Medications were prescribed to the patient: Augmentin 875 mg: take 1 tablet orally every 12 hours for 10 days. No refill. Substitution is permissible.(disp 20 tabs) -- Joseph Garza Dr.
== END 2016-05-18 11:49 | disposition home or self-care (01) ==
LOC: ED SRH 11:06
DX: S60.872A Other superficial bite of left wrist, initial encounter (principal); Z79.1 Long term (current) use of non-steroidal anti-inflammatories (NSAID); S60.571A Other superficial bite of hand of right hand, initial encounter; I10 Essential (primary) hypertension; W54.0XXA Bitten by dog, initial encounter; Y93.89 Activity, other specified; Y92.009 Unspecified place in unspecified non-institutional (private) residence as the place of occurrence of the external cause; Y99.9 Unspecified external cause status; Z79.84 Long term (current) use of oral hypoglycemic drugs; Z79.899 Other long term (current) drug therapy

== ENCOUNTER 2016-08-03 12:55 | Outpatient (CLI) | payer OTHER ==
--- NOTE | 2016-08-03 14:25 | DIAGNOSTIC IMAGING REPORT ---
PROCEDURE: XR FOOT 3 VIEWS - LEFT INDICATION: CHRONIC OPEN ULCERATIONS TECHNIQUE: Three views. COMPARISON: Left foot films 03/18/2016 FINDINGS: Status post amputation of the left foot at the mid-level or bases of the metatarsals. There is no evidence of osteomyelitis. Findings suggest probable soft tissue wound. Arterial vascular calcifications consistent with diabetes. IMPRESSION: 1. Status post amputation of the left midfoot (no change). 2. No evidence of osteomyelitis.
== END 2016-08-03 23:00 ==
LOC: LAB SRH 12:55
DX: E11.621 Type 2 diabetes mellitus with foot ulcer (principal); Z89.432 Acquired absence of left foot

== ENCOUNTER 2016-08-19 09:13 | Outpatient (CLI) | payer OTHER ==
--- NOTE | 2016-08-19 11:38 | DIAGNOSTIC IMAGING REPORT ---
PROCEDURE: US ART LOWER EXT WITH TANYA-LEFT INDICATION: DIABETIC W/ARTIERAL INSUFFIENCY LT FOOT ULCER TECHNIQUE: Color Doppler duplex imaging of the left lower extremity arterial system was performed. Resting ABIs were attempted. COMPARISON: 04/21/2015 FINDINGS: ABIs: ABIs were not obtainable. The vessels were all noncompressible. VESSELS/ WAVEFORMS: Triphasic arterial inflow and triphasic flow through the popliteal artery. Monophasic flow in the calf. There is very heavy arterial calcification of distal lower extremity arteries. No flow was detected in the proximal posterior tibial artery. Posterior tibial artery at the ankle reconstitutes demonstrating monophasic arterial flow. The peroneal artery was not well seen. There is significant velocity elevation in the dorsalis pedis artery wave form at the foot. Benign morphology but enlarged left groin lymph node measuring 4.3 cm in length. PEAK SYSTOLIC VELOCITIES: Common femoral artery: 95 cm/second. Profunda femoral artery: 82 cm/second. Proximal superficial femoral artery: 94 cm/second. Mid superficial femoral artery: 82 cm/second. Distal superficial femoral artery: 86 cm/second. Popliteal artery: 109 cm/second. Proximal posterior tibial artery: Occluded Proximal anterior tibial artery: 83 cm/second. Peroneal artery: Not seen Distal posterior tibial artery: 61 cm/second. Dorsalis pedis artery: 679 cm/second. IMPRESSION: 1. There is new occlusion of the proximal posterior tibial artery with reconstitution of flow at the ankle. 2. 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 3. Heavy calcific atherosclerosis results in incompressible vessels and unobtainable ABIs. 4. Good triphasic arterial inflow.
== END 2016-08-19 23:00 | disposition home or self-care (01) ==
LOC: US SRH 09:13
DX: I77.1 Stricture of artery (principal); I70.202 Unspecified atherosclerosis of native arteries of extremities, left leg